=== PATIENT | female | born 1980 | race Caucasian/White ===

== ENCOUNTER → 2019-09-29 13:01 | Outpatient (BNVA) | payer BC, SELFPAY | PROVIDERS: Visit Provider Internal Medicine Rheumatology | DX: M19.90 Unspecified osteoarthritis, unspecified site (principal); Z79.899 Other long term (current) drug therapy; M81.8 Other osteoporosis without current pathological fracture; I73.00 Raynaud's syndrome without gangrene; M25.541 Pain in joints of right hand; M25.542 Pain in joints of left hand; K55.20 Angiodysplasia of colon without hemorrhage | CPT/HCPCS: 99204 ==

== ENCOUNTER 2019-09-29 15:40 | Outpatient (CLI) | payer BC, SELFPAY ==
--- NOTE | 2019-09-29 15:47 | XR_ITS ---
WS: [id number] XR thoracic spine 2V [id number] REASON FOR EXAM: inflammatory arthritis FINDINGS: Degenerates spurring is seen in the lower thoracic spine anterior vertebral bodies. The disc spaces and vertebral body heights are normal. The lamina, pedicles, spinous processes, are all normal. The thoracic spine is similar to March 26, 2019. XR/XR thoracic spine 2V [id number] IMPRESSION: Mild osteoarthritic changes.
--- NOTE | 2019-09-29 15:47 | XR_ITS ---
WS: [id number] XR hand RT min 3V* [id number] REASON FOR EXAM: inflammatory arthritis FINDINGS: Right hand was evaluated 3 views. The phalanges, metacarpals, and carpals all appear to be normal. The ulna radius were also normal. XR/XR hand RT min 3V* [id number] IMPRESSION: Negative right hand
--- NOTE | 2019-09-29 15:47 | XR_ITS ---
WS: [id number] XR foot LT min 3V* [id number] REASON FOR EXAM: inflammatory arthritis FINDINGS: The phalanges, metatarsals, and tarsals all are seen in good alignment. There is no destructive changes noted. A large calcaneal spur is seen. The remaining calcaneus was normal. XR/XR foot LT min 3V* [id number] IMPRESSION: Negative left foot. Calcaneal spur.
--- NOTE | 2019-09-29 15:47 | XR_ITS ---
WS: [id number] XR foot RT min 3V* [id number] REASON FOR EXAM: inflammatory arthritis FINDINGS: Metatarsal adductus changes of the first through fourth metatarsals. A tailor's bunion is seen in the distal fifth metatarsal. No fractures or other dyscrasias. A calcaneal spur is evident. XR/XR foot RT min 3V* [id number] IMPRESSION: Calcaneal spur.
--- NOTE | 2019-09-29 15:47 | XR_ITS ---
WS: [id number] XR hand LT min 3V* [id number] REASON FOR EXAM: inflammatory arthritis FINDINGS: The phalanges, metacarpals, and carpals are all normal. There is no destructive changes noted in the hand. Some minor soft tissue swelling is seen. XR/XR hand LT min 3V* [id number] IMPRESSION: Negative left hand.
[2019-09-29 17:39] LABS: 25 Hydroxy Vitamin D 41 ng/mL (30-100); C Reactive Protein 0.4 mg/L (0.0-4.9); Ferritin 71 ng/mL (15-150); Iron 78 ug/dL (37-145); Thyroid Stimulating Hormone 1.08 uIU/mL (0.27-4.20); Transferrin 203 mg/dL (200-360)
[2019-09-29 19:37] LABS: Erythrocyte Sedimentation Rate 9 mm/hr (0-15)
[2019-09-30 06:10] LABS: Percent Saturation 32.3 % (20-50); Total Iron Binding Capacity 241 mcg/dl; Unsaturated Iron Binding 163 ug/dL (112-347)
[2019-09-30 06:34] LABS: Free T4 Free Thyroxine 1.12 ng/dL (0.82-1.77)
[2019-10-01 13:51] LABS: Cyclic Citrullinated Peptide <16 UNITS
== END 2019-09-29 15:41 | disposition home or self-care (01) ==
PROVIDERS: Visit Provider Internal Medicine Rheumatology
DX: M19.90 Unspecified osteoarthritis, unspecified site (principal); Z79.899 Other long term (current) drug therapy; M77.31 Calcaneal spur, right foot; M25.541 Pain in joints of right hand; M25.542 Pain in joints of left hand; M77.32 Calcaneal spur, left foot; M47.814 Spondylosis without myelopathy or radiculopathy, thoracic region
CPT/HCPCS: 36415; 72070; 73130; 73630; 82306; 82728; 83540; 83550; 84439; 84443; 84466; 85651; 86140

== ENCOUNTER 2019-11-05 18:35 | Emergency (ER) | payer BC, SELFPAY ==
--- NOTE | 2019-11-05 18:38 | XR_ITS ---
WS: [id number] CHEST 2 VIEWS HISTORY: Rib pain COMPARISON: 03/26/2019 Lungs: Clear with no abnormality. No pleural effusion or pneumothorax. Cardiac size: Normal. Mediastinum/Aorta: Normal mediastinum. Bones: Healed rib fracture in the anterior RIGHT ninth rib. Numerous surgical sutures in the LEFT upper abdomen. XR/XR chest 2V* [id number] IMPRESSION: Normal chest.
[2019-11-05 18:49] VITALS: BP 109/72; PULSE 91; RESP 14; TEMP 37.1; O2SAT 100; BMI 17.2
--- NOTE | 2019-11-05 20:56 | ED_ITS ---
HPI - Extremity Problem General: Chief complaint: Extremity Problem,Nontraumatic Stated complaint: rib pain Time Seen by Provider: 11/05/19 20:47 History of Present Illness: HPI Narrative: Ronda is a nice 39-year-old female who comes in complaining of a 2 to 3-day history of right-sided rib pain. The patient states that this pain feels just like what she has had in the past. The patient does not remember a specific injury but states that forceful vomiti ng, coughing, or certain movements have caused rib fractures in the past. The patient has significant osteoporosis at a very young age and has been referred to [facility] in [place] for further work-up of this. Patient denies any shortness of breath but she does have pain with deep breathing. She is here requesting something for pain as she feels as though she knows what this is and just wants something for the discomfort. Associated symptoms: Deny fever(s) or rash Review of Systems Const: Denies: fever(s), chills, body aches, fatigue, malaise or diaphoresis Eyes: Denies: change in vision, blurry vision, blind spots or photophobia ENMT: Denies: throat pain, odynophagia, hoarseness, swelling of lips/tongue, ear or mastoid pain, ear discharge, change in hearing or nasal discharge Card: Denies: palpitations, irregular heart rhythm, edema, lightheadedness, syncope, pre-syncope, dyspnea on exertion or orthopnea Resp: Denies: dyspnea, productive cough, non-productive cough, wheezing, hemoptysis or chest congestion GI: Denies: abdominal pain, nausea, vomiting, hematemesis, coffee ground emesis, heartburn, diarrhea, constipation, GI cramping, hematochezia or melena : Denies: flank pain, dysuria, urinary frequency, urinary urgency or hematuria Musc: Denies: neck pain, back pain, extremity pain, extremity swelling, joint pain, joint swelling, joint redness, joint warmth or joint stiffness Skin/Breast: Denies: rash, pruritus, erythema, skin tenderness or jaundice Neuro: Denies: headache(s), numbness in extremities, weakness in extremities, sensory changes, lack of coordination, difficulty walking, dizziness, vertigo, confusion or Slurred speech present Rajan/Lymph: Denies: easy bruising, easy bleeding, petechiae, purpura or enlarged lymph nodes All/Imm: Denies: urticaria, throat swelling, tongue swelling, facial swelling or acute wheezing PFSH ED PFSH: Medical History ADD (attention deficit disorder) Arthralgia of both hands AV malformation of gastrointestinal tract Dry mouth History of anxiety History of IBS History of migraine headaches History of Raynaud's syndrome Hyperthyroidism Iron deficiency anemia Joint pain Osteoporosis Raynaud disease Surgical History History of bowel resection History of breast augmentation History of section History of gastric bypass History of gastric stapling sleeve History of tonsillectomy and adenoidectomy Family History Other Hypertension Denies family history of Rheumatoid arthritis Diabetes Chronic kidney disease (CKD) Systemic lupus erythematosus (SLE) in adult Stroke Social History Smoking and tobacco status: never smoked Alcohol intake: former Physical Exam Const: COMMON NORMALS: no acute distress, patient oriented x3, no limitations, healthy appearing and well nourished GENERAL APPEARANCE: cooperative, well kempt and well developed HENMT: COMMON NORMALS: normocephalic, atraumatic, external ears normal, EAC's normal and Normal external nose present HEAD & SCALP: normal to inspection, normocephalic and atraumatic FACE & SINUS: normal facial exam and face symmetric NOSE: Normal external nose present and Normal nares present EXTERNAL EAR: Yes external ears normal EXTERNAL AUDITORY CANAL: EAC's normal MOUTH: Normal oral and palatal mucosa present, lip normal and tongue normal Eye: COMMON NORMALS: Equal, round and reactive pupils present and conjunctivae normal GENERAL EYE: appearance normal, both eyes and all related structures ALIGNMENT: Yes alignment normal PERIORBITAL: periorbital findings normal EYELID: eyelids normal CONJUNCTIVA: Yes conjunctivae normal SCLERA: sclerae normal PUPIL: Yes Equal, round and reactive pupils present Neck/C-Spine: COMMON NORMALS: full ROM, no lymphadenopathy, supple, no meningeal signs and no JVD GENERAL: Yes normal visual inspection and Yes trachea midline Chest: CHEST: No crepitus and Yes tenderness (Right lower lateral and anterior ribs.) Resp: COMMON NORMALS: normal respiratory effort, No retractions and No use of accessory muscles EFFORT & INSPECTION: Yes able to speak in complete sentences and Yes symmetric chest movement AUSCULTATION: no crackles, no rales, no rhonchi and no wheezes Cardio: COMMON NORMALS: no JVD, regular rate, regular rhythm, S1 normal heart sound present and S2 normal heart sound present RATE: regular rate RHYTHM: regular rhythm HEART SOUNDS: S1 normal heart sound present, S2 normal heart sound present, no click, no gallops, no murmurs, no rubs and abnormal split S2 GI: COMMON NORMALS: Soft to palpation and No hepatosplenomegaly present PALPATION: Yes Soft to palpation, No Tenderness to palpation present (GI), No Guarding due to palpation present (GI), No Rigid due to palpation, Yes No hepatosplenomegaly present, No Hernia present, No Palpable mass present and No Pulsatile mass present : COMMON NORMALS: Yes no CVA tenderness BLADDER/KIDNEY EXAM: Yes no CVA tenderness EXTERNAL FEMALE EXAM: No Hernia present Back/Pelvis: COMMON NORMALS: no CVA tenderness, thoracic and lumbar spine nor mal to inspection, no thoracic nor lumbar tenderness and thoraco-lumbar ROM normal Extremity: COMMON NORMALS: normal to inspection, full ROM, capillary refill normal, no joint enlargement, no clubbing, cyanosis or edema and no calf tenderness Neuro: COMMON NORMALS: patient oriented x3, CN's II-XII intact bilaterally, moves all extremities, no focal motor deficits and no sensory deficits noted MENINGEAL SIGNS: Yes no meningeal signs SPEECH: speech normal Psych: COMMON NORMALS: mental status grossly normal, Normal thought process present, cooperative, normal affect, speech normal and activity/motor behavior normal APPEARANCE: Yes well kempt SPEECH: Yes normal speech THOUGHT PROCESS: Normal thought process present Skin: COMMON NORMALS: no rashes or lesions noted, turgor normal, no jaundice, no petechiae and no mottling GENERAL SKIN EXAM: no rashes or lesions noted and turgor normal Course Vital Signs: Vital signs: Vital Signs Temperature 98.7 F 11/05/19 18:49 Pulse Rate 91 11/05/19 18:49 Respiratory Rate 16 11/05/19 21:14 Blood Pressure 109/72 11/05/19 18:49 Pulse Oximetry 100 11/05/19 18:49 MDM - Extremity (Nontraumatic) MDM Narrative: Medical decision making narrative: Patient is declining any work-up for any other cause of her symptoms. She is adamant she feels as though this is a rib fracture and she does not want to go through a big work-up, IVs, scans or otherwise. She wants to go home but is requesting something for pain. I will send her home with a short course of Malone but she understands if anything worsens or changes that she needs to return. There is no evidence of pneumothorax, pulmonary contusion, mediastinal abnormality or air in the soft tissues of the chest. I see no sign of pneumothorax or pulmonary contusion. Patient understands though that something else could be going on and agrees to return should her symptoms worsen. Imaging Data^: CXR: My impression: No acute cardiopulmonary findings. No pneumothorax. Possible right lower rib fracture. Discharge Plan Discharge Patient Disposition: Home, Self-Care Clinical Impression: Fracture of rib Qualifiers: Encounter type: initial encounter Rib fracture type: single rib Fracture type: closed Laterality: right Qualified Code(s): S22.31XA - Fracture of one rib, right side, initial encounter for closed fracture Condition: Stable Prescriptions: New Malone 5-325 mg tablet 1 tab PO Q6H PRN (Reason: pain) 5 Days Qty: 20 RF: 0 No Action sumatriptan succinate [Imitrex] 25 mg tablet 25 mg PO Q2H PRNRF: 0 clonazepam [Klonopin] 0.5 mg tablet 0.5 mg PO TID RF: 0 dextroamphetamine-amphetamine [Adderall] 20 mg tablet 20 mg PO BID RF: 0 Ajovy Syringe 225 mg/1.5 mL syringe 225 mg SUBCUT .monthly RF: 0 ondansetron 8 mg tablet,disintegrating 8 mg PO Q8H RF: 0 lansoprazole [Prevacid] 30 mg capsule,delayed release(DR/EC) 30 mg PO DAILY RF: 0 hyoscyamine sulfate [Levsin] 0.125 mg tablet 0.125 mg PO QID RF: 0 topiramate 100 mg capsule,extended release 24hr 100 mg PO DAILY RF: 0 valacyclovir 500 mg tablet 500 mg PO DAILY RF: 0 albuterol sulfate 90 mcg/actuation HFA aerosol inhaler 2 puff INHALATION Q6H PRNRF: 0 fluoxetine 20 mg capsule 20 mg PO DAILY RF: 0 Prolia 60 mg/mL syringe SUBCUT RF: 0 Referrals: Lenny Joshi MD [Primary Care Provider] - 1-3 days Discharge Diet: Advance as tolerated Discharge Activity: Increase activity as tolerated Patient Instructions: Fractures - Rib Activity Restrictions/Additional Instructions: Please return to the ER immediately for any of the signs or symptoms listed on your discharge instruction sheets, worsening/changing of your symptoms, you are not getting better as quickly as expected, or for ANY other cause or concerns. You have been offered further evaluation and care but declined, if you change your mind, you become short of breath or your symptoms change or worsen in any way please return to the ER immediately for recheck. 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
[2019-11-05] MEDS: HYDROcodone-acetaminophen 5-325 mg Tablet 1 TAB PO (21:11)
[2019-11-05 21:14] VITALS: RESP 16
== END 2019-11-05 21:16 | disposition home or self-care (01) ==
PROVIDERS: Emergency Provider Emergency Medicine; PCP Internal Medicine
DX: S22.31XA Fracture of one rib, right side, initial encounter for closed fracture (principal); X58.XXXA Exposure to other specified factors, initial encounter
CPT/HCPCS: 12345; 71046; 99281; 99283